=== PATIENT | male | born 1950 | race Caucasian/White ===

== ENCOUNTER → 2020-03-06 | Outpatient (CLI) | payer MEDICARE, MEDICAID ==
[~2020-03-06] MED LIST: AMLODIPINE BESY10 MG PO; COREG 3.125M3.125 MG PO; HYDRALAZINE HCL25 MG PO; HYDROCHLOROTHIA25 MG PO; IPRAT-ALBUT 0.5-3 ML INH; LISINOPRIL20 MG PO; LISINOPRIL40 MG PO; LOW DOSE ASPIRI81 MG PO; METFORMIN HCL500 MG PO; PERCOCET 5/325 T1 EA PO; SIMVASTATIN20 MG PO; VENTOLIN HFA 66.7 GM INH; ZOFRAN 4 MG TAB4 MG PO
== END ==
LOC: HEART 5 07:50
DX: R94.31 Abnormal electrocardiogram [ECG] [EKG] (principal); I25.10 Atherosclerotic heart disease of native coronary artery without angina pectoris
CPT/HCPCS: 78452; 93306; A9502; J2785

== ENCOUNTER → 2020-03-17 | Outpatient (CLI) | payer MEDICARE ==
[2020-03-17 10:37] LABS: HEMOGLOBIN 18.5 gm/dl (14.0-17.5); RED BLOOD COUNT 6.01 M/UL (4.20-5.50); WHITE BLOOD COUNT 7.9 K/UL (4.5-11.0)
== END ==
LOC: OPSV2 09:00
PROVIDERS: Surgery
DX: Z01.812 Encounter for preprocedural laboratory examination (principal); R91.8 Other nonspecific abnormal finding of lung field
CPT/HCPCS: 36415; 80048; 85007; 85027

== ENCOUNTER 2020-04-01 06:03 | Inpatient (IN) | payer MEDICARE, MEDICAID ==
[~2020-04-01] VITALS: Ht 172.7 cm; Wt 86.2 kg
[2020-04-01] MEDS ORDERED: COREG 3.125M3.125 MG PO (06:45)
[2020-04-01] MEDS ORDERED: LOW DOSE ASPIRI81 MG PO (06:46)
[2020-04-01] MEDS ORDERED: LISINOPRIL20 MG PO (06:46)
[2020-04-01] MEDS ORDERED: SIMVASTATIN20 MG PO (06:47)
[2020-04-01] MEDS ORDERED: HYDROCHLOROTHIA25 MG PO (06:49)
[2020-04-01] MEDS ORDERED: HYDRALAZINE HCL25 MG PO (06:49)
[2020-04-01] MEDS ORDERED: VENTOLIN HFA 66.7 GM INH (06:53)
[2020-04-01 12:06] LABS: RED BLOOD COUNT 5.54 M/UL (4.20-5.50); WHITE BLOOD COUNT 12.2 K/UL (4.5-11.0)
[2020-04-02 05:38] LABS: HEMOGLOBIN 16.5 gm/dl (14.0-17.5); RED BLOOD COUNT 5.41 M/UL (4.20-5.50); WHITE BLOOD COUNT 14.7 K/UL (4.5-11.0)
[2020-04-02] MEDS ORDERED: IPRAT-ALBUT 0.5-3 ML INH (11:58)
[2020-04-02] MEDS ORDERED: METFORMIN HCL500 MG PO (12:04)
[2020-04-02] MEDS ORDERED: PERCOCET 5/325 T1 EA PO (18:12)
[2020-04-03 03:17] LABS: HEMOGLOBIN 15.1 gm/dl (14.0-17.5); RED BLOOD COUNT 5.06 M/UL (4.20-5.50); WHITE BLOOD COUNT 12.1 K/UL (4.5-11.0)
[2020-04-03] MEDS ORDERED: ZOFRAN 4 MG TAB4 MG PO (09:21)
== END 2020-04-03 11:05 | disposition home or self-care (01) | DRG 163 ==
LOC: OR 06:03 → CCU 09:00
PROVIDERS: Internal Medicine; Physician Assistant; ADMIT Surgery
PROC: 0BJ08ZZ Inspection of Tracheobronchial Tree, Via Natural or Artificial Opening Endoscopic (ICD-10-PCS; 2020-04-01)
PROC: 0BBJ4ZZ Excision of Left Lower Lung Lobe, Percutaneous Endoscopic Approach (ICD-10-PCS; principal; 2020-04-01 07:30)
DX: C34.12 Malignant neoplasm of upper lobe, left bronchus or lung (principal); J96.01 Acute respiratory failure with hypoxia; C78.2 Secondary malignant neoplasm of pleura; R91.1 Solitary pulmonary nodule; F17.210 Nicotine dependence, cigarettes, uncomplicated; E78.5 Hyperlipidemia, unspecified; Z20.822 Contact with and (suspected) exposure to COVID-19; I10 Essential (primary) hypertension; J44.9 Chronic obstructive pulmonary disease, unspecified; Z82.49 Family history of ischemic heart disease and other diseases of the circulatory system; Z79.899 Other long term (current) drug therapy; Z83.3 Family history of diabetes mellitus; Z86.73 Personal history of transient ischemic attack (TIA), and cerebral infarction without residual deficits; Z28.21 Immunization not carried out because of patient refusal
CPT/HCPCS: 36415; 71045; 80048; 80053; 82550; 82553; 84484; 85025; 85027; 85610; 85730; 86850; 86900; 86901; 93005; 94664; 97162; 97165; J0690; J1100; J1170; J2250; J2405; J2704; J2710; J3010; J7040; J7050; J7120

== ENCOUNTER 2020-06-27 12:26 | Emergency (ER) | payer MEDICARE, OTHER ==
[~2020-06-27 12:26] MED LIST changes: -AMLODIPINE BESY10 MG PO; -LISINOPRIL40 MG PO
[2020-06-27 13:29] LABS: HEMOGLOBIN 13.4 gm/dl (14.0-17.5); RED BLOOD COUNT 4.35 M/UL (4.20-5.50)
[2020-06-27 13:48] LABS: BUN/CREATININE RATIO 21 (0-10)
== END 2020-06-27 16:35 | disposition home or self-care (01) ==
LOC: ER1 12:26
PROVIDERS: Physician Assistant Medical
DX: I51.7 Cardiomegaly (principal); C34.90 Malignant neoplasm of unspecified part of unspecified bronchus or lung; Z51.11 Encounter for antineoplastic chemotherapy; R07.89 Other chest pain; E11.9 Type 2 diabetes mellitus without complications; I10 Essential (primary) hypertension; R00.1 Bradycardia, unspecified; Z87.891 Personal history of nicotine dependence
CPT/HCPCS: 71045; 80053; 82550; 82553; 83735; 83874; 83880; 84484; 85025; 85610; 93005; 99285; J1642

== ENCOUNTER → 2020-07-03 | Outpatient (CLI) | payer MEDICARE, MEDICAID ==
[~2020-07-03] MED LIST changes: +AMLODIPINE BESY10 MG PO; +LISINOPRIL40 MG PO
[2020-07-03 16:00] LABS: HEMOGLOBIN 14.2 gm/dl (14.0-17.5); RED BLOOD COUNT 4.65 M/UL (4.20-5.50); WHITE BLOOD COUNT 3.7 K/UL (4.5-11.0)
[2020-07-03 16:30] LABS: BUN/CREATININE RATIO 13 (0-10)
== END ==
LOC: LAB 14:59
PROVIDERS: Internal Medicine Interventional Cardiology
DX: E78.5 Hyperlipidemia, unspecified (principal); I10 Essential (primary) hypertension; I42.0 Dilated cardiomyopathy; J44.9 Chronic obstructive pulmonary disease, unspecified; R07.9 Chest pain, unspecified; R94.31 Abnormal electrocardiogram [ECG] [EKG]
CPT/HCPCS: 36415; 80048; 85025; 85610; 85730; 93005

== ENCOUNTER 2020-07-21 07:11 | Observation (INO) | payer MEDICARE, MEDICAID ==
[~2020-07-21] VITALS: Ht 177.8 cm; Wt 83.5 kg
[~2020-07-21 07:11] MED LIST changes: -AMLODIPINE BESY10 MG PO; -LISINOPRIL40 MG PO
[2020-07-21 09:19] LABS: HEMOGLOBIN 14.2 gm/dl (14.0-17.5); RED BLOOD COUNT 4.6 M/UL (4.20-5.50); WHITE BLOOD COUNT 8.1 K/UL (4.5-11.0)
[2020-07-21 09:36] LABS: BUN/CREATININE RATIO 12 (0-10)
[2020-07-21] MEDS ORDERED: LISINOPRIL40 MG PO (09:46)
[2020-07-21] MEDS ORDERED: AMLODIPINE BESY10 MG PO (09:48)
== END 2020-07-22 18:56 | disposition home or self-care (01) ==
LOC: M/S 07:11 → CATH 07:11 → M/S 14:00 → CATH 17:12 → M/S 17:12
PROVIDERS: ADMIT Internal Medicine Interventional Cardiology
DX: I11.0 Hypertensive heart disease with heart failure (principal); I50.9 Heart failure, unspecified; I42.0 Dilated cardiomyopathy; I20.8 Other forms of angina pectoris; I10 Essential (primary) hypertension; I25.2 Old myocardial infarction; F17.210 Nicotine dependence, cigarettes, uncomplicated; Z88.2 Allergy status to sulfonamides; Z79.82 Long term (current) use of aspirin; Z79.84 Long term (current) use of oral hypoglycemic drugs
CPT/HCPCS: 36415; 80048; 85025; 85610; 85730; 93005; 99152; 99153; C1769; G0378; J1644; J2250; J3010; J7030; Q9967

== ENCOUNTER → 2020-08-12 | Outpatient (CLI) | payer MEDICARE ==
[~2020-08-12] MED LIST changes: +AMLODIPINE BESY10 MG PO; +LISINOPRIL40 MG PO; +LOPRESSOR 25 MG25 MG PO; +ZOFRAN4 MG PO
== END ==
LOC: HEART 5 16:48
DX: R00.2 Palpitations (principal); I49.3 Ventricular premature depolarization

== ENCOUNTER → 2020-10-17 | Outpatient (CLI) | payer MEDICARE ==
[2020-10-17 10:28] LABS: HEMOGLOBIN 12.9 gm/dl (14.0-17.5); RED BLOOD COUNT 4.27 M/UL (4.20-5.50); WHITE BLOOD COUNT 8.1 K/UL (4.5-11.0)
[2020-10-17 10:51] LABS: BUN/CREATININE RATIO 15 (0-10)
== END ==
LOC: CATH 09:13
PROVIDERS: Internal Medicine Cardiovascular Disease
DX: I42.0 Dilated cardiomyopathy (principal); I47.2 Ventricular tachycardia; I11.0 Hypertensive heart disease with heart failure; I50.22 Chronic systolic (congestive) heart failure; I49.5 Sick sinus syndrome; F17.210 Nicotine dependence, cigarettes, uncomplicated; C34.90 Malignant neoplasm of unspecified part of unspecified bronchus or lung; J44.9 Chronic obstructive pulmonary disease, unspecified; E78.5 Hyperlipidemia, unspecified; I25.2 Old myocardial infarction; Z86.73 Personal history of transient ischemic attack (TIA), and cerebral infarction without residual deficits; Z88.2 Allergy status to sulfonamides; Z79.82 Long term (current) use of aspirin; Z79.84 Long term (current) use of oral hypoglycemic drugs; Z79.899 Other long term (current) drug therapy; Z20.822 Contact with and (suspected) exposure to COVID-19
CPT/HCPCS: 36415; 71046; 80048; 85025; 93620; 99152; 99153; C1730; C1766; J1644; J2250; J3010; J3370; J7040; U0002